=== PATIENT | female | born 1945 | race Caucasian/White ===

== ENCOUNTER 2018-11-22 14:27 | Emergency (ER) | payer MEDICARE ==
[~2018-11-22] VITALS: Ht 170.2 cm; Wt 83.0 kg
[~2018-11-22 14:27] MED LIST changes: -ALBU90OI61 INH; -LEVO750 PO; -PRED10 PO
[2018-11-22] MEDS ORDERED: ALBU90OI61 INH (15:49)
[2018-11-22] MEDS ORDERED: LEVO750 PO (15:49)
[2018-11-22] MEDS ORDERED: PRED10 PO (15:49)
== END 2018-11-22 16:24 | disposition home or self-care (01) ==
LOC: ER 14:27
DX: J90 Pleural effusion, not elsewhere classified (principal); R06.02 Shortness of breath; Z79.899 Other long term (current) drug therapy; J44.9 Chronic obstructive pulmonary disease, unspecified; I10 Essential (primary) hypertension; Z87.891 Personal history of nicotine dependence
CPT/HCPCS: 36415; 71046; 80048; 83880; 84484; 85025; 96374; 99284-25; J2930

== ENCOUNTER → 2018-11-22 | Outpatient (CLI) | payer MEDICARE ==
[~2018-11-22] MED LIST: ALBU90OI61 INH; ALEN70; Inderal40 MG PO; LEVO750 PO; LISI5 PO; NAPR220 PO; OXYACE7.5T PO; PEG-3350 SOLU4000 ML; PRED10 PO; SIMV80 PO; TRAM50; TRAM50 PO
[2018-11-22 12:13] LABS: BASOPHILS ABSOLUTE AUTO 0.01 K/mm3 (0.00-0.23); BASOPHILS PERCENT AUTO 0 % (0-2); EOSINOPHILS ABSOLUTE AUTO 0.02 K/mm3 (0.00-0.68); EOSINOPHILS PERCENT AUTO 0 % (0-6); Hematocrit 32.8 % (33.0-51.0); IMMATURE GRAN ABSOLUTE AUTO 0.02 K/mm3 (0.00-0.10); IMMATURE GRAN PERCENT AUTO 0 % (0-1); LYMPHOCYTES ABSOLUTE AUTO 0.32 K/mm3 (0.84-5.20); LYMPHOCYTES PERCENT AUTO 7 % (21-46); MONOCYTES ABSOLUTE AUTO 0.82 K/mm3 (0.16-1.47); MONOCYTES PERCENT AUTO 18 % (4-13); Mean Corpuscular HGB 31.8 pg (26.0-34.0); Mean Corpuscular HGB Conc 33.5 g/dL (31.5-36.5); Mean Corpuscular Volume 95 fL (80-100); Mean Platelet Volume 9.6 fL (9.1-12.4); NEUTROPHILS ABSOLUTE AUTO 3.37 K/mm3 (1.96-9.15); NEUTROPHILS PERCENT AUTO 74 % (41-73); Platelet Count 188 K/mm3 (150-400); RDW Coefficient Variation 12.3 % (11.7-14.2); RDW Standard Deviation 42.8 fL (35.1-46.3); Red Blood Cell Count 3.46 M/mm3 (3.80-5.20); White Blood Cell Count 4.56 K/mm3 (4.00-11.30)
[2018-11-22 12:30] LABS: Anion Gap 10 mmol/L (6-16); Blood Urea Nitrogen 31 mg/dL (8-24); CO2, Blood 24 mmol/L (21-32); Calcium, Blood 8.8 mg/dL (8.5-10.1); Chloride, Blood 101 mmol/L (98-108); Creatinine, Blood 1.35 mg/dL (0.40-1.00); Glomerular Filtration Rate 39 (60-); Glucose, Blood 107 mg/dL (70-99); Potassium, Blood 4.4 mmol/L (3.5-5.5); Sodium, Blood 135 mmol/L (136-145); Troponin I <0.015 ng/mL (0.000-0.040)
== END | disposition home or self-care (01) ==
LOC: LAB EV 12:09 → LAB SHORT 12:09
PROVIDERS: Physician Assistant Surgical
DX: R06.00 Dyspnea, unspecified (principal)
CPT/HCPCS: 80048; 84484; 85025

== ENCOUNTER 2018-12-18 16:00 | Observation (INO) | payer MEDICARE ==
[~2018-12-18] VITALS: Ht 170.2 cm; Wt 84.8 kg
[~2018-12-18 16:00] MED LIST changes: +ALBU90OI61 INH; +LEVO750 PO; +PRED10 PO
[2018-12-18 16:33] LABS: BASOPHILS PERCENT AUTO 0 % (0-2); EOSINOPHILS ABSOLUTE AUTO 0.02 K/mm3 (0.00-0.68); EOSINOPHILS PERCENT AUTO 1 % (0-6); Hematocrit 30.8 % (33.0-51.0); Hemoglobin 10.2 g/dL (11.5-16.0); IMMATURE GRAN ABSOLUTE AUTO 0.01 K/mm3 (0.00-0.10); IMMATURE GRAN PERCENT AUTO 0 % (0-1); LYMPHOCYTES ABSOLUTE AUTO 0.14 K/mm3 (0.84-5.20); LYMPHOCYTES PERCENT AUTO 5 % (21-46); MONOCYTES ABSOLUTE AUTO 0.56 K/mm3 (0.16-1.47); MONOCYTES PERCENT AUTO 20 % (4-13); Mean Corpuscular HGB Conc 33.1 g/dL (31.5-36.5); Mean Corpuscular Volume 100 fL (80-100); Mean Platelet Volume 10.3 fL (9.1-12.4); NEUTROPHILS ABSOLUTE AUTO 2.13 K/mm3 (1.96-9.15); NEUTROPHILS PERCENT AUTO 75 % (41-73); Platelet Count 161 K/mm3 (150-400); RDW Coefficient Variation 12.9 % (11.7-14.2); RDW Standard Deviation 46.8 fL (35.1-46.3); Red Blood Cell Count 3.09 M/mm3 (3.80-5.20); White Blood Cell Count 2.86 K/mm3 (4.00-11.30)
[2018-12-18 16:53] LABS: Albumin, Blood 3.3 g/dL (3.4-5.0); Albumin/Globulin Ratio 0.9 (0.8-1.8); Bilirubin, Total 0.5 mg/dL (0.1-1.0); Bun/Creatinine Ratio 20.5 (12.0-20.0); Calcium, Blood 8.4 mg/dL (8.5-10.1); Creatinine, Blood 1.27 mg/dL (0.40-1.00); Globulin, Blood 3.5 g/dL (2.2-4.0); Potassium, Blood 4.2 mmol/L (3.5-5.5); Total Protein, Blood 6.8 g/dL (6.4-8.2)
--- NOTE | 2018-12-19 04:05 | NUR ---
*LATE ENTRY 2315* RECEIVED PT HANDOFF FROM ED NURSE SIENNA PT COMES FROM PRIVATE RESIDENCE, TACHYCARDIC, TACHYPNEIC, DYSPNEIC - PT DESATURATES W/ACTIVITY. PT HAS A MASS IN CHEST DISCOVERED BY CT SCAN, BPE'S, EXPECT THORACENTESIS SOON. PT IS A&O X4 AND INDEPENDENT FOR SHORT DISTANCES. 2330 - PT TRANSFERED TO MEDICAL FLOOR AND ORIENTED TO UNIT. PT NOTICIBLY DYSPNEIC MOVING FROM WHEELCHAIR TO BED. CONSIDERING HER STANDBY ASSIST UNTIL THIS IMPROVES.
--- NOTE | 2018-12-19 05:00 | NUR ---
SHIFT SUMMARY PT IS AN ED ADMIT WITH RT AND LFT PLEURAL EFFUSIONS. SHE IS NPO, ALTHOUGH THE DR ALLOWED HER TYLENOL AND ICEWATER WHEN I CALLED HIM AT 0110 HRS. SHE BECOMES EXTREMELY DYSPNEIC WITH EVEN THE SMALLEST EFFORT. WE ARE USING A BSC AND STANDBY ASSIST UNTIL IMPROVEMENT IS SEEN. A THORACENTESIS PROCEDURE IS EXPECTED. A CT SCAN FOUND A LARGE MASS IN HER CHEST, POSSIBLE LYMPHOMA. THE PT IS AWARE OF THIS FINDING. SHE IS A&O X4 AND RUNS TACHYCARDIC 100-110 BPM. SHE DOES NOT USE O2 AT HOME, SHE HAS A HX OF HTN AND COPD. SHE IS A FORMER SMOKER OF 40 YEARS. SHE LIVES ALONE AT HOME, BUT HAS FAMILY IN THE AREA
[2018-12-19 08:36] LABS: Prothrombin Time Results 10.6 Sec (9.7-11.5)
--- NOTE | 2018-12-19 18:28 | NUR ---
*LATE ENTRY* 0900- PLAN FOR PT TO HAVE A THORACENTESIS TODAY NEW ORDER PLACED FOR PT INR AND PTT PRE PROCEDURE.
--- NOTE | 2018-12-19 18:29 | NUR ---
*LATE ENTRY* POST THORACENTESIS- PT SLIGHTLY LESS DYSPNEIC WITH ACTIVITY AND IS ABLE TO SIT AT LESS THAN 90 DEGREE ANGLE. SPOKE TO DR JAMIL ABOUT THE CONSULT HE WILL SEE HER OUT PT NEXT WEEK, STATED HIS OFFICE WILL CALL HER FRIDAY TO SCHEDULE APPOINTMENT. 1150ML OF FLUID REMOVED PER REPORT AND SENT TO LAB FOR MICROBIOLOGY AND CYTOLOGY.
--- NOTE | 2018-12-19 19:28 | NUR ---
CALLED DR AMARJIT SHINE TO ORDER PT HOME MEDICATIONS. HR 129 PROPRANOLOL ORDERED PO FOR RIGHT NOW.
--- NOTE | 2018-12-19 19:37 | NUR ---
SHIFT SUMMARY- CALLED DR OCASIO AT CHANGE OF SHIFT, PT HOME MEDS NOT ORDERED, RECIEVED ORDER FOR HOME MEDS SEE PREVIOUS NOTE FOR DETAILS. PT HAD A THORACENTESIS TODAY BUT HAS HAD A LOW GRADE FEVER AFTER IT TODAY, MEDICATED WITH TYLENOL. PT HAS HAD NO C/O PAIN. AFTER THE PROCEDURE NOTED FINE CRACKLES IN THE BASES OF BOTH LUNGS, PT SEEMED PAINFUL WHEN SHE WOULD TAKE A DEEP BREATH, BUT DENIED PAIN. SEE PREVIOUS NOTES FOR DETAILS ABOUT THORACENTESIS.
[2018-12-20 04:47] LABS: BASOPHILS PERCENT AUTO 0 % (0-2); EOSINOPHILS ABSOLUTE AUTO 0.04 K/mm3 (0.00-0.68); EOSINOPHILS PERCENT AUTO 2 % (0-6); Hematocrit 28.9 % (33.0-51.0); Hemoglobin 9.3 g/dL (11.5-16.0); IMMATURE GRAN ABSOLUTE AUTO 0.01 K/mm3 (0.00-0.10); IMMATURE GRAN PERCENT AUTO 0 % (0-1); LYMPHOCYTES ABSOLUTE AUTO 0.13 K/mm3 (0.84-5.20); LYMPHOCYTES PERCENT AUTO 5 % (21-46); MONOCYTES PERCENT AUTO 32 % (4-13); Mean Corpuscular HGB 31.6 pg (26.0-34.0); Mean Corpuscular HGB Conc 32.2 g/dL (31.5-36.5); Mean Corpuscular Volume 98 fL (80-100); Mean Platelet Volume 10.3 fL (9.1-12.4); NEUTROPHILS ABSOLUTE AUTO 1.56 K/mm3 (1.96-9.15); NEUTROPHILS PERCENT AUTO 61 % (41-73); Platelet Count 140 K/mm3 (150-400); RDW Coefficient Variation 12.8 % (11.7-14.2); RDW Standard Deviation 45.5 fL (35.1-46.3); Red Blood Cell Count 2.94 M/mm3 (3.80-5.20); White Blood Cell Count 2.54 K/mm3 (4.00-11.30)
--- NOTE | 2018-12-20 06:03 | NUR ---
SHIFT SUMMARY PT STATED SHE FELT MUCH IMPROVED FOLLOWING HER THORACENTESIS. SHE DID INDEED LOOK BETTER TODAY. SHE STATED THAT SHE STILL FELT AT TIMES SOB WHILE SITTING WELL WHEN MOVING. PT EXPERIENCING AN ELEVATED HR AT BEGINNING OF SHIFT. SHE STATED THAT THERE WERE MEDICATIONS SHE GET AT HOME THAT SHE WAS NOT GETTING HERE. HOME MEDICATIONS WERE REVIEWED AND CALLED IN TO THE HOSPITALIST, THEY WERE THEN ADDED TO THE EMAR. HR DID IMPROVE FOLLOWING THEIR ADMINISTRATION. PT DID REQUEST TYLENOL BEFORE SHE WAS ABLE TO SLEEP AT MIDNIGHT. SHE IS IN THE HABIT OF TAKING TYLENOL BEFORE BED AT HOME.
--- NOTE | 2018-12-20 11:47 | NUR ---
DISCHARGE NOTE- PT DISCHARGED HOME. PT WAS GIVEN VERBAL AND WRITTEN DISCHARGE INSTRUCTIONS AND ACKNOWLEDGED UNDERSTANDING OF THEM. PT WAS ESCORTED OUT VIA W/C BY HER FAMILY, SHE REFUSED STAFF ESCORT. PT IV DC'D PRIOR TO DISCHARGE. NO FURTHER QUESTIONS AT THE TIME OF DISCHARGE. TALKED WITH THE PT ABOUT TAKING PROPER REST PERIODS TO HELP PREVENT SEVERE DYSPNEA. DR JAMIL'S OFFICE SHOULD CALL PT ON FRIDAY TO SCHEDULE AN APPOINTMENT, PER DR JAMIL. PT WAS GIVEN CONTACT INFO FOR THE HOSPITAL IN THE EVENT OF QUESTIONS LATER TODAY ABOUT HER DISCHARGE.
== END 2018-12-20 11:15 | disposition home or self-care (01) ==
LOC: ER 16:00 → MEDS 16:01 → ENPENDDIS 12-20 10:00 → MEDS 12-20 11:15
PROVIDERS: Physician Assistant; Student in an Organized Health Care Education/Training Program; ADMIT Hospitalist
DX: J90 Pleural effusion, not elsewhere classified (principal); J98.59 Other diseases of mediastinum, not elsewhere classified; I12.9 Hypertensive chronic kidney disease with stage 1 through stage 4 chronic kidney disease, or unspecified chronic kidney disease; N18.3 Chronic kidney disease, stage 3 (moderate); J44.9 Chronic obstructive pulmonary disease, unspecified; E78.5 Hyperlipidemia, unspecified; M19.90 Unspecified osteoarthritis, unspecified site; Z87.891 Personal history of nicotine dependence; Z79.899 Other long term (current) drug therapy
CPT/HCPCS: 32555; 36415; 71045; 71046; 71260; 80053; 82947; 83605; 83880; 84145; 84484; 85025; 85610; 85730; 87070; 87205; 88108; 88305; 93005; 93010; 94640; 99285-25; G0378; Q9967

== ENCOUNTER 2019-01-01 09:44 | Day surgery (SDC) | payer MEDICARE | END 2019-01-02 23:14 | disposition home or self-care (01) | LOC: US 09:44 | DX: J90 Pleural effusion, not elsewhere classified (principal); C38.1 Malignant neoplasm of anterior mediastinum | CPT/HCPCS: 32555; 71045 ==

== ENCOUNTER 2019-02-09 07:24 | Day surgery (SDC) | payer MEDICARE ==
[~2019-02-09] VITALS: Ht 170.2 cm; Wt 75.3 kg
[~2019-02-09 07:24] MED LIST changes: +CITRACAL + D31 EACH PO; +LORA.5 PO; +Metoprolol Succ25 MG PO; +Simvastatin40 MG PO
[2019-02-09] MEDS ORDERED: Senna8.6 MG PO (09:38)
[2019-02-09] MEDS ORDERED: ZESTORETIC 20-121 EA (09:38)
--- NOTE | 2019-02-09 09:39 | NUR ---
History, Chart, Medications and Allergies reviewed before start of procedure. Patient confirms NPO status and agrees with scheduled surgery. Lungs clear T/O to Auscultation. PATIENT ON 2L NC O2 AT ADMIT. Patient reports completing Chlorhexadine shower X2 prior to admission to hospital. Pre-Op teaching done. Pt verbalizes understanding. Patient States Post-Procedure ride home has been arranged.
--- NOTE | 2019-02-09 10:06 | NUR ---
BRASS INSTRUMENT REPAIR TECHNICIAN REPORT COMPLETED AT BEDSIDE WITH SPENSER FERNANDEZ.
--- NOTE | 2019-02-09 10:20 | NUR ---
WHEN WASTING THE 0.5 MG IV VERSED THAT WAS NOT GIVEN, YANIRA DUEÑAS MISTAKENLY NOTED IN THE PYXIS THAT WE HAD WASTED 1.5 MG TOTAL IN ERROR. ACTUAL AMOUNT WASTED BY THIS RN AND YANIRA AGUAYO RN (WITNESS) WAS 0.5 MG VERSED. TOTAL AMINISTERED TO PATIENT VIA TITRATED DOSAGE WAS 1.5 MG IV VERSED.
--- NOTE | 2019-02-09 10:54 | NUR ---
02/09/19 1054 Milka Barroso HEPARIN 500 UNITS TO FLUSH [facility]
--- NOTE | 2019-02-09 12:06 | NUR ---
RECEIVED REPORT FROM DISTRIBUTION FIELD ENGINEER (ALEX) PT IS AWAKE. RCW JAREN CDI.
--- NOTE | 2019-02-09 12:17 | NUR ---
PT REPORTS CHEST IS SORE AND WOULD LIKE A PAIN PILL BEFORE D.C FRIEND IS ON WAY TO [employer]KE RELINER
--- NOTE | 2019-02-09 12:36 | NUR ---
Discharge instructions reviewed with patient. Patient verbalizes understanding. Copy given to patient to take home. PT VOICED NO QUESTIONS OR CONCERNS WITH GOING HOME. PT HAS D/C PAPERWORK AND RX. PT TOLERATED SNACK AND PAIN PILL. FRIEND HAS ARRIVED. VSS. PT HAS ALL PERSONAL BELONGINGS. PT HAS HOME O2-2L. PT HAS MEDIPORT ADAPTOR/INSTRUCTIONS. Patient States Post-Procedure ride home has been arranged. Discharged via wheelchair to private car for ride home.
--- NOTE | 2019-02-09 12:38 | NUR ---
ALMA ROSA EASTMAN CDI
== END 2019-02-09 23:17 | disposition home or self-care (01) ==
LOC: ORSCMMR 07:24 → ORD 09:00 → ORSCMMR 23:17
PROVIDERS: Surgery
PROC: 02HV33Z Insertion of Infusion Device into Superior Vena Cava, Percutaneous Approach (ICD-10-PCS; principal; 2019-02-09 09:45)
PROC: B5181ZA Fluoroscopy of Superior Vena Cava using Low Osmolar Contrast, Guidance (ICD-10-PCS; principal; 2019-02-09 09:45)
DX: C83.39 Diffuse large B-cell lymphoma, extranodal and solid organ sites (principal); I10 Essential (primary) hypertension; E78.00 Pure hypercholesterolemia, unspecified; Z99.81 Dependence on supplemental oxygen; Z79.899 Other long term (current) drug therapy
CPT/HCPCS: 77001; A9270-GY; C1788; J0690; J1642; J2250; J2704; J3010; J7120

== ENCOUNTER 2019-03-31 12:09 | Inpatient (IN) | payer MEDICARE ==
[~2019-03-31] VITALS: Ht 170.2 cm; Wt 74.0 kg
[~2019-03-31 12:09] MED LIST changes: +Senna8.6 MG PO; +ZESTORETIC 20-121 EA PO
[2019-03-31 13:22] LABS: Hematocrit 27.6 % (33.0-51.0); Mean Corpuscular HGB 32.1 pg (26.0-34.0); Mean Corpuscular HGB Conc 32.6 g/dL (31.5-36.5); Mean Corpuscular Volume 99 fL (80-100); Platelet Count 64 K/mm3 (150-400); RDW Standard Deviation 50.5 fL (35.1-46.3)
[2019-03-31 13:36] LABS: BASOPHILS ABSOLUTE AUTO 0.02 K/mm3 (0.00-0.23); BASOPHILS PERCENT AUTO 2 % (0-2); EOSINOPHILS ABSOLUTE AUTO 0.06 K/mm3 (0.00-0.68); EOSINOPHILS PERCENT AUTO 7 % (0-6); IMMATURE GRAN ABSOLUTE AUTO 0.01 K/mm3 (0.00-0.10); IMMATURE GRAN PERCENT AUTO 1 % (0-1); LYMPHOCYTES ABSOLUTE AUTO 0.06 K/mm3 (0.84-5.20); LYMPHOCYTES PERCENT AUTO 7 % (21-46); MONOCYTES ABSOLUTE AUTO 0.23 K/mm3 (0.16-1.47); MONOCYTES PERCENT AUTO 28 % (4-13); NEUTROPHILS ABSOLUTE AUTO 0.45 K/mm3 (1.96-9.15); NEUTROPHILS PERCENT AUTO 54 % (41-73); White Blood Cell Count 0.83 K/mm3 (4.00-11.30)
[2019-03-31 13:43] LABS: Alanine Aminotransfer (ALT/SGP 27 U/L (12-78); Albumin, Blood 3.5 g/dL (3.4-5.0); Alk Phos 98 U/L (50-136); Anion Gap 7 mmol/L (6-16); Aspartate Aminotrans (AST/SGOT 19 U/L (12-37); Bilirubin, Total 0.5 mg/dL (0.1-1.0); Blood Urea Nitrogen 28 mg/dL (8-24); CO2, Blood 28 mmol/L (21-32); Calcium, Blood 8.9 mg/dL (8.5-10.1); Chloride, Blood 96 mmol/L (98-108); Creatinine, Blood 0.93 mg/dL (0.40-1.00); Globulin, Blood 3.6 g/dL (2.2-4.0); Glomerular Filtration Rate >60 (60-); Glucose, Blood 115 mg/dL (70-99); Potassium, Blood 4.4 mmol/L (3.5-5.5); Sodium, Blood 131 mmol/L (136-145); Total Protein, Blood 7.1 g/dL (6.4-8.2)
--- NOTE | 2019-03-31 20:54 | NUR ---
PATIENT IS A NEW ADMIT FROM THE ED. TRANSFER FROM W/C TO BED INDEPENDENT. AXOX 4. PATIENT ORIENTED TO ROOM AND CALL LIGHT SYSTEM.ON 2L O2 NC. NEUTROPENIC PRECAUTIONS. CALL LIGHT IN REACH.
--- NOTE | 2019-03-31 22:29 | NUR ---
NS INFUSING AT 75 mL/HR. PATIENT REPORTS UPPER LIP/NOSE AND L CHEEK PAIN. IV DILAUDID 1 MG GIVEN PER EMAR. CALL LIGHT IN REACH. WILL CONTINUE TO MONITOR.
--- NOTE | 2019-03-31 23:01 | NUR ---
CONSULT CALLED INTO DR PEREZ ANSWERING SERVICE.
--- NOTE | 2019-04-01 03:34 | NUR ---
SHIFT SUMMARY PATIENT HAD NO ACUTE CHANGES OBSERVED DURING THE SHIFT. AXO X4 AND INDEPENDENT TO BSC. ON 2L O2 NC BASELINE. PIV REMAINS INTACT. NS INFUSING AT 75mL/HR. REPORTED UPPER LIP/NOSE PAIN X 2 AND RECEIVED IV DILAUDID 1 MG PER EMAR. TACHY ON ADMIT AT 124 AND DOWN TO 105. NEUTROPENIC PRECAUTIONS. WBC 0.83. CONSULT CALLED INTO DR PEREZ ANSWERING SERVICE. AFEBRILE. TAKES MEDICATION WITH WATER. CALL LIGHT IN REACH. BED IN LOWEST POSITION. WILL CONTINUE TO MONITOR UNTIL DAY SHIFT NURSE ASSUMES CARE.
[2019-04-01 04:12] LABS: Hematocrit 25.1 % (33.0-51.0); Hemoglobin 8.2 g/dL (11.5-16.0); Mean Corpuscular HGB 32.5 pg (26.0-34.0); Mean Corpuscular HGB Conc 32.7 g/dL (31.5-36.5); Mean Corpuscular Volume 100 fL (80-100); Mean Platelet Volume 11.1 fL (9.1-12.4); Platelet Count 60 K/mm3 (150-400); RDW Standard Deviation 51.6 fL (35.1-46.3); Red Blood Cell Count 2.52 M/mm3 (3.80-5.20); White Blood Cell Count 1.08 K/mm3 (4.00-11.30)
[2019-04-01 04:28] LABS: Anion Gap 6 mmol/L (6-16); Blood Urea Nitrogen 16 mg/dL (8-24); Bun/Creatinine Ratio 19.7 (12.0-20.0); CO2, Blood 28 mmol/L (21-32); Calcium, Blood 8.7 mg/dL (8.5-10.1); Chloride, Blood 97 mmol/L (98-108); Creatinine, Blood 0.81 mg/dL (0.40-1.00); Glomerular Filtration Rate >60 (60-); Glucose, Blood 102 mg/dL (70-99); Potassium, Blood 4.3 mmol/L (3.5-5.5); Sodium, Blood 131 mmol/L (136-145)
[2019-04-01 05:17] LABS: BAND PERCENT MAN 6 % (0-8); BASOPHILS PERCENT MAN 0 % (0-2); EOSINOPHILS ABSOLUTE MAN 0.04 K/mm3 (0.00-0.68); EOSINOPHILS PERCENT MAN 4 % (0-6); LYMPHOCYTES % ATYPICAL MANUAL 2 % (0-0); LYMPHOCYTES ABSOLUTE MAN 0.08 K/mm3 (0.84-5.20); LYMPHOCYTES PERCENT MAN 6 % (21-46); MONOCYTES ABSOLUTE MAN 0.33 K/mm3 (0.16-1.47); MONOCYTES PERCENT MAN 31 % (4-13); NEUTROPHILS ABSOLUTE MAN 0.61 K/mm3 (1.96-9.15); SEG NEUTROPHILS PERCENT MAN 51 % (41-73); TOTAL CELLS COUNTED 51
--- NOTE | 2019-04-01 15:58 | NUR ---
SHIFT SUMMARY 73 YR OLD FEMALE. ADMITTED FOR FACIAL CELLULITIS. ON NEUTROPENIC PRECAUTIONS/NEUTROPENIC DIET. MEDIPORT IN RT UPPER CHEST THAT IS NOT ACCESSED. 2 LPM O2 @ HOME AND WHILE ADMITTED. JARET LOBATO FOR DVT PROPHYLAXIS. WBC CRITICALLY LOW ON ADMIT (0.83), TODAY WBC IS 1.08. 20 IV IN LFT FOREARM RUNNING NS @ 75 ML/HR. A&O X4, INDEPENDENT IN ROOM. MEDS WHOLE WITH WATER. HGB AND HCT DOWNTRENDING (HGB 9.0 ON ADMIT, NOW 8.2. HCT 27.6 ON ADMIT, NOW 25.1). PT RUNS TACHYCARDIC 98-124 BPM. HX: LG B-CELL LYMPHOMA (DR. PEREZ FOLLOWING), CKD3, BACK PAIN, HTN, LEFT KNEE REPLACEMENT. PT HAS GOOD APPETITE TODAY.
--- NOTE | 2019-04-01 17:10 | NUR ---
SHIFT SUMMARY ADDENDUM UPDATE - NEW ORDERS ENTERED: NS @ 50 ML/HR. RATE OF ADMIN HAS BEEN CHANGED
--- NOTE | 2019-04-01 22:48 | NUR ---
PATIENT REQUESTED SLEEP AID. HOSPITALIST ZAK ARMENTA ORDERED MELATONIN 5 MG Q8 PRN HS FOR INSOMNIA.
--- NOTE | 2019-04-02 03:20 | NUR ---
SHIFT SUMMARY PATIENT HAD NO ACUTE CHANGES OBSERVED DURING THE SHIFT. AXOX 4 AND SBA TO BR. DENIES PAIN, SOB, AND N/V. PIV REMAINS INTACT. NS INFUSING AT 50 ml/HR. [facility] NOT ACCESSED. JARET HOSE STOCKINGS ON. NEUTROPENIC PRECAUTIONS. TACHY AT SHIFT CHANGE, 108, AFEBRILE, BP WNL. ON 2L O2 NC BASELINE. PATIENT REPORTED INSOMNIA AND HOSPITALIST ZAK CODING SPECIALIST ORDERED MELATONIN 5 MG PO. COOPERATIVE WITH CARE. CALL LIGHT IN REACH. BED IN LOWEST POSITION. WILL CONTINUE TO MONITOR UNITIL DAY SHIFT NURSE ASSUMES CARE.
[2019-04-02 05:01] LABS: Hematocrit 24.1 % (33.0-51.0); Mean Corpuscular HGB 33.3 pg (26.0-34.0); Mean Corpuscular HGB Conc 33.2 g/dL (31.5-36.5); Mean Corpuscular Volume 100 fL (80-100); Mean Platelet Volume 11.2 fL (9.1-12.4); Platelet Count 74 K/mm3 (150-400); RDW Coefficient Variation 13.6 % (11.7-14.2); RDW Standard Deviation 50.4 fL (35.1-46.3); White Blood Cell Count 3.36 K/mm3 (4.00-11.30)
[2019-04-02 05:25] LABS: Alanine Aminotransfer (ALT/SGP 21 U/L (12-78); Albumin, Blood 3.1 g/dL (3.4-5.0); Alk Phos 82 U/L (50-136); Anion Gap 7 mmol/L (6-16); Aspartate Aminotrans (AST/SGOT 13 U/L (12-37); BAND PERCENT MAN 3 % (0-8); BASOPHILS PERCENT MAN 3 % (0-2); Bilirubin, Total 0.3 mg/dL (0.1-1.0); Blood Urea Nitrogen 17 mg/dL (8-24); Bun/Creatinine Ratio 22.1 (12.0-20.0); CO2, Blood 26 mmol/L (21-32); Calcium, Blood 8.6 mg/dL (8.5-10.1); Chloride, Blood 102 mmol/L (98-108); Creatinine, Blood 0.77 mg/dL (0.40-1.00); EOSINOPHILS ABSOLUTE MAN 0.16 K/mm3 (0.00-0.68); EOSINOPHILS PERCENT MAN 5 % (0-6); Globulin, Blood 3.1 g/dL (2.2-4.0); Glomerular Filtration Rate >60 (60-); Glucose, Blood 90 mg/dL (70-99); LYMPHOCYTES PERCENT MAN 3 % (21-46); METAMYELOCYTE ABSOLUTE MAN 0.03 K/mm3 (0.00-0.00); METAMYELOCYTE PERCENT MAN 1 % (0-0); MONOCYTES ABSOLUTE MAN 0.67 K/mm3 (0.16-1.47); MONOCYTES PERCENT MAN 20 % (4-13); Magnesium, Blood 1.8 mg/dL (1.6-2.4); NEUTROPHILS ABSOLUTE MAN 2.28 K/mm3 (1.96-9.15); SEG NEUTROPHILS PERCENT MAN 65 % (41-73); Sodium, Blood 135 mmol/L (136-145); TOTAL CELLS COUNTED 100; Total Protein, Blood 6.2 g/dL (6.4-8.2)
--- NOTE | 2019-04-02 17:40 | NUR ---
PATIENT IS A/OX4, UP INDEPENDENTLY IN ROOM. TOLERATING NEUTROPENIC DIET. 20G IV TO L FA WNL, NS @50ML/HR INFUSING. 2LO2 VIA NC HERE AND AT BASELINE. REPORTS PAIN IS IMPROVING AND DENIES NEED FOR PAIN MEDICATION THIS SHIFT. CALM AND COOPERATIVE WITH CARE AND CALLS APPROPRIATELY FOR ASSISTANCE.
[2019-04-03 04:44] LABS: Hematocrit 25.1 % (33.0-51.0); Hemoglobin 8.1 g/dL (11.5-16.0); Mean Corpuscular HGB 32.9 pg (26.0-34.0); Mean Corpuscular HGB Conc 32.3 g/dL (31.5-36.5); Mean Corpuscular Volume 102 fL (80-100); Platelet Count 106 K/mm3 (150-400); RDW Coefficient Variation 13.8 % (11.7-14.2); RDW Standard Deviation 51.3 fL (35.1-46.3); Red Blood Cell Count 2.46 M/mm3 (3.80-5.20); White Blood Cell Count 4.84 K/mm3 (4.00-11.30)
--- NOTE | 2019-04-03 04:51 | NUR ---
Rn summary: Patient is alert and oriented. Pt was given restaril 15mg and a new eggcrate for her bed and she states she rested better last night. Swelling to lip is going down. Pt has some lip discomfort, it is improving but declines need for pain meds this shift. Pt has used BSC independantly during the night with good urine output. Plan is to continue IV antibiotics for a few more days, Call light is at bedside. Continues to rest.
[2019-04-03 05:00] LABS: Anion Gap 4 mmol/L (6-16); Blood Urea Nitrogen 11 mg/dL (8-24); Bun/Creatinine Ratio 15.2 (12.0-20.0); CO2, Blood 28 mmol/L (21-32); Calcium, Blood 8.5 mg/dL (8.5-10.1); Chloride, Blood 105 mmol/L (98-108); Creatinine, Blood 0.73 mg/dL (0.40-1.00); Glomerular Filtration Rate >60 (60-); Glucose, Blood 92 mg/dL (70-99); Potassium, Blood 4.1 mmol/L (3.5-5.5); Sodium, Blood 137 mmol/L (136-145)
[2019-04-03 05:20] LABS: BAND PERCENT MAN 6 % (0-8); BASOPHILS ABSOLUTE MAN 0.04 K/mm3 (0.00-0.23); BASOPHILS PERCENT MAN 1 % (0-2); EOSINOPHILS PERCENT MAN 0 % (0-6); LYMPHOCYTES ABSOLUTE MAN 0.19 K/mm3 (0.84-5.20); LYMPHOCYTES PERCENT MAN 4 % (21-46); MONOCYTES ABSOLUTE MAN 0.62 K/mm3 (0.16-1.47); MONOCYTES PERCENT MAN 13 % (4-13); MYELOCYTE ABSOLUTE MAN 0.09 K/mm3 (0.00-0.00); MYELOCYTE PERCENT MAN 2 % (0-0); NEUTROPHILS ABSOLUTE MAN 3.87 K/mm3 (1.96-9.15); SEG NEUTROPHILS PERCENT MAN 74 % (41-73); TOTAL CELLS COUNTED 100
[2019-04-03 11:53] LABS: Vancomycin, Trough 16.1 ug/mL (5.0-10.0)
--- NOTE | 2019-04-03 18:20 | NUR ---
NO ACUTE CHANGES THIS SHIFT. PATIENT CONTINUES TO IMPROVE. DID NOT REQUIRE ANY PAIN MEDICATION TODAY. A/OX3, UP INDEPENDENTLY IN ROOM. VSS THIS SHIFT.
--- NOTE | 2019-04-04 05:17 | NUR ---
Rn summary: Pt is a very pleasant lady who has done well tonight. Pt still has a little swelling to left side of upper lip. Pt states it no longer hurts. She is eating and drinking without difficulty. Pt did receive restaril for sleep again tonight and she has rested well. Pt is up independantly in room. Vital signs are stable. Call light in reach.
[2019-04-04 05:21] LABS: Hematocrit 24.9 % (33.0-51.0); Hemoglobin 8.1 g/dL (11.5-16.0); Mean Corpuscular HGB 33.3 pg (26.0-34.0); Mean Corpuscular HGB Conc 32.5 g/dL (31.5-36.5); Mean Corpuscular Volume 103 fL (80-100); Mean Platelet Volume 11.1 fL (9.1-12.4); Platelet Count 161 K/mm3 (150-400); RDW Coefficient Variation 13.9 % (11.7-14.2); RDW Standard Deviation 51.8 fL (35.1-46.3); Red Blood Cell Count 2.43 M/mm3 (3.80-5.20); White Blood Cell Count 5.77 K/mm3 (4.00-11.30)
[2019-04-04 05:43] LABS: BAND PERCENT MAN 16 % (0-8); BASOPHILS PERCENT MAN 0 % (0-2); EOSINOPHILS ABSOLUTE MAN 0.05 K/mm3 (0.00-0.68); EOSINOPHILS PERCENT MAN 1 % (0-6); LYMPHOCYTES ABSOLUTE MAN 0.17 K/mm3 (0.84-5.20); LYMPHOCYTES PERCENT MAN 3 % (21-46); MONOCYTES ABSOLUTE MAN 0.57 K/mm3 (0.16-1.47); MONOCYTES PERCENT MAN 10 % (4-13); MYELOCYTE ABSOLUTE MAN 0.11 K/mm3 (0.00-0.00); MYELOCYTE PERCENT MAN 2 % (0-0); NEUTROPHILS ABSOLUTE MAN 4.84 K/mm3 (1.96-9.15); SEG NEUTROPHILS PERCENT MAN 68 % (41-73); TOTAL CELLS COUNTED 100
[2019-04-04 05:46] LABS: Anion Gap 4 mmol/L (6-16); Blood Urea Nitrogen 11 mg/dL (8-24); Bun/Creatinine Ratio 14.9 (12.0-20.0); CO2, Blood 26 mmol/L (21-32); Calcium, Blood 8.4 mg/dL (8.5-10.1); Chloride, Blood 109 mmol/L (98-108); Creatinine, Blood 0.74 mg/dL (0.40-1.00); Glomerular Filtration Rate >60 (60-); Glucose, Blood 91 mg/dL (70-99); Sodium, Blood 139 mmol/L (136-145)
--- NOTE | 2019-04-04 17:13 | NUR ---
SHIFT SUMMARY PT HAS HAD NO COMPLAINTS THIS SHIFT. PT UP IN CHAIR A LOT OF THE SHIFT. IVF INFUSING WITHOUT DIFFICULTY. PT HAS BEEN ON ROOM AIR WITH O2 SATURATION AT 100% THIS AFTERNOON/EVENING. NO ACUTE CHANGES THIS SHIFT. CALL LIGHT IN REACH. WILL CONTINUE TO MONITOR AND REPORT TO ONCOMING RN.
[2019-04-05 05:48] LABS: Hematocrit 25.7 % (33.0-51.0); Hemoglobin 8.3 g/dL (11.5-16.0); Mean Corpuscular HGB 32.2 pg (26.0-34.0); Mean Corpuscular HGB Conc 32.3 g/dL (31.5-36.5); Mean Platelet Volume 10.5 fL (9.1-12.4); Platelet Count 191 K/mm3 (150-400); RDW Coefficient Variation 14.1 % (11.7-14.2); RDW Standard Deviation 51.1 fL (35.1-46.3); Red Blood Cell Count 2.58 M/mm3 (3.80-5.20); White Blood Cell Count 5.87 K/mm3 (4.00-11.30)
[2019-04-05 05:51] LABS: Mean Corpuscular Volume 100 fL (80-100)
[2019-04-05 06:05] LABS: BAND PERCENT MAN 7 % (0-8); BASOPHILS PERCENT MAN 0 % (0-2); EOSINOPHILS PERCENT MAN 0 % (0-6); METAMYELOCYTE ABSOLUTE MAN 0.11 K/mm3 (0.00-0.00); METAMYELOCYTE PERCENT MAN 2 % (0-0); MONOCYTES ABSOLUTE MAN 0.58 K/mm3 (0.16-1.47); MONOCYTES PERCENT MAN 10 % (4-13); MYELOCYTE ABSOLUTE MAN 0.23 K/mm3 (0.00-0.00); MYELOCYTE PERCENT MAN 4 % (0-0); NEUTROPHILS ABSOLUTE MAN 4.93 K/mm3 (1.96-9.15); SEG NEUTROPHILS PERCENT MAN 77 % (41-73); TOTAL CELLS COUNTED 100
--- NOTE | 2019-04-05 06:16 | NUR ---
Rn summary: Patient is alert and oriented. She feels she is doing better, L upper lip still sl swollen, she denies any discomfort there. Pt is up independantly in room. She sat in her chair for first 3 hours of shift. Pt received restaril 15mg for sleep and has rested well. Pt was on RA while awake, O2 2 liters while sleeping. Call light in reach.
--- NOTE | 2019-04-05 17:54 | NUR ---
SHIFT SUMAMRY: NO ACUTE CHANGES TO REPORT THIS SHIFT. PT A&O; CALM AND COOPERATIVE WITH CARE; INDEPENDENT IN ROOM. MEDIPORT IN R CHEST WALL; ACCESSED THIS SHIFT; NS @ 50; IV ABX CONTINUING. EXPECTED TRANSITION TO PO ABX SOON; PT THEN ABLE TO DISCHARGE HOME. WCTM.
--- NOTE | 2019-04-06 06:35 | NUR ---
SHIFT SUMMARY PT A/O INDEPENDENT TO BSC. NO C/O PAIN. VERY SLIGHT PUFFY TO L UPPER LIP AREA. SHE WAS ABLE TO SLEEP T/O NIGHT AFTER SLEEPING MED. EAGER TO D/C. CALL LIGHT IN REACH.
[2019-04-06 11:44] LABS: Vancomycin, Trough 18.9 ug/mL (5.0-10.0)
[2019-04-06] MEDS ORDERED: CLIN300 PO (14:48)
[2019-04-06] MEDS ORDERED: TRAM50 PO (14:49)
--- NOTE | 2019-04-06 16:15 | NUR ---
DISCHARGE NOTE PT DISCHARGED VIA W/C POV UNACCOMPANIED AND IN NO ACUTE DISTRESS. RX FAXED TO PHARMACY OF PT'S CHOICE ([facility]). PORT DEACCESSED AND WNL. PT VERBALIZED UNDERSTANDING OF KEEPING FOLLOW UP APPTS AND TAKING MEDICATIONS PRESCRIBED.
== END 2019-04-06 16:12 | disposition home or self-care (01) | DRG 157 ==
LOC: ER 12:09 → MEDS 16:30
PROVIDERS: Pharmacist; Physician Assistant; Student in an Organized Health Care Education/Training Program; ADMIT Internal Medicine Endocrinology, Diabetes & Metabolism
DX: K13.0 Diseases of lips (principal); D61.810 Antineoplastic chemotherapy induced pancytopenia; L03.211 Cellulitis of face; C83.30 Diffuse large B-cell lymphoma, unspecified site; J44.9 Chronic obstructive pulmonary disease, unspecified; M19.90 Unspecified osteoarthritis, unspecified site; N18.3 Chronic kidney disease, stage 3 (moderate); Z87.891 Personal history of nicotine dependence; I12.9 Hypertensive chronic kidney disease with stage 1 through stage 4 chronic kidney disease, or unspecified chronic kidney disease; D70.1 Agranulocytosis secondary to cancer chemotherapy; D63.0 Anemia in neoplastic disease
CPT/HCPCS: 36415; 70487; 80048; 80053; 80202; 83605; 83735; 84100; 85025; 87040; 93005; 93010; 96361; 96365; 96366; 96375; 96376; 99284-25; J1170; J2405; J3370; J7030; J7120; Q9967